=== PATIENT | female | born 1935 | race Asian ===

== ENCOUNTER → 2018-01-26 | Outpatient (CLI) | payer MEDICARE, OTHER ==
[~2018-01-26] MED LIST: ASPI-891 PO; CALC1TAB15 PO; CLOP75 PO; DSS100 PO; HYDR-4061 PO; LETR2.5 PO; METO100T14 PO; NITR0.4T50 SL; REGADENOSON 0.4 MG/5 ML PF SYRINGE IVP ONE; SESTAMIBI TC99M/UD ISOTOPE 1 EA INJ INJ ONE; VALS160T2 PO
[2018-01-26 08:05] VITALS: BP 177/89
[2018-01-26 09:40] VITALS: BP 133/67
== END | disposition home or self-care (01) ==
LOC: CARDMN 08:44
PROVIDERS: ATTEND Internal Medicine Cardiovascular Disease
DX: I25.9 Chronic ischemic heart disease, unspecified (principal); I25.10 Atherosclerotic heart disease of native coronary artery without angina pectoris
CPT/HCPCS: 78452; 93017; A9500

== ENCOUNTER 2019-05-11 00:38 | Emergency (ER) | payer MEDICARE, OTHER ==
[~2019-05-11] VITALS: Ht 149.9 cm; Wt 63.6 kg
[~2019-05-11 00:38] MED LIST changes: +AMLO10TA7 PO; +APIX2.5T PO; -ASPI-891 PO; +ASPI81 PO; -CLOP75 PO; +CLOP75TA3 PO; +ISOS30TA6 PO; +OMEP20 PO; -REGADENOSON 0.4 MG/5 ML PF SYRINGE IVP ONE; -SESTAMIBI TC99M/UD ISOTOPE 1 EA INJ INJ ONE; -VALS160T2 PO
[2019-05-11] MEDS ORDERED: SODIUM BICARBONATE [ADULT] 8.4% 50 MEQ/50 ML SYRINGE IVP ONE ×3 (00:41→03:30)
[2019-05-11] MEDS ORDERED: EPINEPHrine 1:10,000 [1 MG/10 ML] SYRINGE IVP ONE ×2 (00:41)
[2019-05-11] MEDS ORDERED: ATROPINE SULFATE 0.1 MG/ML 10 ML SYRINGE IVP ONE (00:41)
[2019-05-11] MEDS ORDERED: AMIODARONE HCL 50 MG/ML 3 ML VIAL IV ONE (00:41)
[2019-05-11] MEDS ORDERED: CALCIUM CHLORIDE 100 MG/ML 10 ML SYRINGE IVP ONE ×2 (00:41→03:30)
[2019-05-11] MEDS ORDERED: RAPID SEQUENCE KIT [RSI] 1 EACH KIT ONE (02:30)
[2019-05-11] MEDS ORDERED: SUCCINYLCHOLINE CHLORIDE 20 MG/ML 10 ML VIAL ONE (02:30)
[2019-05-11 02:34] LABS: GLUCOSE,POINT OF CARE 473 MG/DL (70-110)
[2019-05-11] MEDS ORDERED: NOREPINEPHRINE 4 MG/D5%-WATER 250 ML IV ONE (02:43)
[2019-05-11] MEDS ORDERED: MIDAZOLAM HCL 5 MG/ML VIAL ONE ×2 (02:52→06:08)
[2019-05-11] MEDS ORDERED: HEPARIN SODIUM,PORCINE 5,000 UNITS/ML VIAL ONE (02:54)
[2019-05-11] MEDS ORDERED: NOREPINEPHRINE 4 MG/D5%-WATER 250 ML IV PRN (03:00)
[2019-05-11 03:03] LABS: INR 1.6 (0.9-1.1); PROTHROMBIN TIME 16.4 SEC (9.4-11.6)
[2019-05-11 03:16] LABS: ALBUMIN 1.5 g/dL (3.4-5.0); BILIRUBIN,TOTAL 0.9 mg/dL (0.1-1.0); CALCIUM, TOTAL 7.9 mg/dL (8.8-10.5); CREATININE 2.39 mg/dL (0.60-1.30); THYROID STIMULATING HORMONE 0.22 uIU/mL (0.36-3.74); TOTAL PROTEIN, SERUM 4.3 g/dL (6.4-8.2)
[2019-05-11 03:18] LABS: MEAN CORPUSCULAR HEMOGLOBIN 34.1 pg (26.0-34.0); MEAN CORPUSCULAR HGB CONC 30.4 G/dL (31.0-37.0); MEAN CORPUSCULAR VOLUME 112 fL (80-100); PLATELET COUNT (AUTO) 93 K/uL (150-450); RED BLOOD CELL COUNT(AUTO) 1.41 MIL/uL (4.00-5.20); RED CELL DISTRIBUTION WIDTH 19.2 % (11.5-14.5)
[2019-05-11 03:19] LABS: HEMATOCRIT 15.9 % (36-46); HEMOGLOBIN 4.8 g/dL (12.0-16.0)
[2019-05-11 03:25] LABS: POTASSIUM 7.8 mmol/L (3.5-5.1)
[2019-05-11] MEDS ORDERED: PANTOPRAZOLE SODIUM 80 MG in SODIUM CHLORIDE 0.9% 100 ML IV SCH (03:30)
[2019-05-11] MEDS ORDERED: PANTOPRAZOLE SODIUM 40 MG/VIAL IVP ONE (03:30)
[2019-05-11] MEDS ORDERED: CALCIUM GLUCONATE 100 MG/ML 10 ML IVP ONE ×3 (03:30→06:00)
[2019-05-11] MEDS ORDERED: INSULIN REGULAR, HUMAN 100 UNITS/ML IVP ONE (03:30)
[2019-05-11] MEDS ORDERED: DEXTROSE 50%-WATER 25 GM/50 ML SYRINGE IVP ONE ×2 (03:30)
[2019-05-11 03:31] LABS: MEAN CORPUSCULAR HEMOGLOBIN 34.4 pg (26.0-34.0); MEAN CORPUSCULAR HGB CONC 29.9 G/dL (31.0-37.0); MEAN CORPUSCULAR VOLUME 115 fL (80-100); RED BLOOD CELL COUNT(AUTO) 0.96 MIL/uL (4.00-5.20); RED CELL DISTRIBUTION WIDTH 18.8 % (11.5-14.5)
[2019-05-11 03:34] LABS: APPEARANCE,URINE CLOUDY (CLEAR); BILIRUBIN,URINE NEGATIVE (NEGATIVE); GLUCOSE, URINE (UA) 250 mg/dL (NEGATIVE); KETONES,URINE NEGATIVE (NEGATIVE); LEUKOCYTE ESTERASE ,URINE NEGATIVE (NEGATIVE); NITRATE,URINE NEGATIVE (NEGATIVE); OCCULT BLOOD,URINE NEGATIVE (NEGATIVE); PROTEIN,URINE POS 1+ (NEGATIVE); UROBILINOGEN,URINE 0.2 mg/dL (<=1.0)
[2019-05-11 03:37] LABS: PLATELET MORPHOLOGY COMMENT GIANT PLTS PRESENT
[2019-05-11] MEDS ORDERED: SODIUM BICARBONATE 150 MEQ in DEXTROSE 5%-WATER 1,000 ML IV ONE (04:00)
[2019-05-11] MEDS ORDERED: INSULIN REGULAR, HUMAN 100 UNITS in SODIUM CHLORIDE 0.9% 99 ML IV SCH ×2 (04:00)
[2019-05-11] MEDS ORDERED: SODIUM BICARBONATE 150 MEQ in DEXTROSE 5%-WATER 850 ML IV ONE (04:00)
[2019-05-11 04:10] LABS: ABG CARBOXYHEMOGLOBIN 0.3 % (0.0-1.5); ABG METHEMOGLOBIN 0.4 % (0.0-1.5); ABG OXYGEN SATURATION 98.7 % (95.0-98.0); SOURCE, BLOOD GAS ARTERIAL; TEMPERATURE, FAHRENHEIT, BG 97.6 FAHREN (96.0-98.6)
[2019-05-11 04:13] LABS: ABG PH 6.847 (7.35-7.450)
[2019-05-11 04:14] LABS: ABG TOTAL HEMOGLOBIN 2.5 G/dL (12.0-18.0); SITE, BLOOD GAS RT RADIAL
[2019-05-11 04:15] LABS: O2 DEVICE,BLOOD GAS VENTILATOR (ROOM AIR); PEEP,BG 5 cm H2O; VT, ABG 450 ml
[2019-05-11 04:23] LABS: HEMOGLOBIN 3.3 g/dL (12.0-16.0)
[2019-05-11 04:26] LABS: SEGMENTED NEUTROPHILS % 63 % (40-70)
[2019-05-11 04:27] LABS: BAND NEUTROPHILS % (MANUAL) 8 % (0-5); LYMPHOCYTES % (MANUAL) 25 % (22-44); MONOCYTES % (MANUAL) 3 % (2-9); MYELOCYTES % 1 % (0-0)
[2019-05-11] MEDS ORDERED: EPINEPHrine 2 MG, CALCIUM CHLORIDE 1,000 MG in DEXTROSE 5%-WATER 238 ML IV PRN (04:30)
[2019-05-11 04:34] LABS: CORRECTED WHITE BLOOD COUNT 1.7 K/uL (4.5-11.0)
[2019-05-11 04:45] LABS: BACTERIA,URINE Many /HPF (None Seen); RBC,URINE None Seen /HPF (0-2); SQUAMOUS EPITHELIAL CELL,UR Rare /LPF (None Seen)
[2019-05-11 04:58] LABS: PLATELET COUNT (AUTO) 39 K/uL (150-450)
[2019-05-11 05:39] LABS: GLUCOSE,POINT OF CARE 498 MG/DL (70-110)
[2019-05-11 05:39] LABS: GLUCOSE,POINT OF CARE 571 MG/DL (70-110)
[2019-05-11] MEDS ORDERED: CALCIUM GLUCONATE 1,000 MG in DEXTROSE 5%-WATER 50 ML IV ONE (05:45)
[2019-05-11] MEDS ORDERED: MIDAZOLAM HCL 5 MG/ML VIAL IVP ONE (06:15)
[2019-05-11 06:45] VITALS: BP 119/66
[2019-05-11 06:54] LABS: GLUCOSE,POINT OF CARE 558 MG/DL (70-110)
[2019-05-11 07:04] LABS: GLUCOSE,POINT OF CARE 534 MG/DL (70-110)
== END 2019-05-11 08:50 | disposition expired ==
LOC: EMS 00:40 → ICU 05:40 → UNDOADMIN 05:40 → EMS 08:37
DX: I21.4 Non-ST elevation (NSTEMI) myocardial infarction (principal); K92.2 Gastrointestinal hemorrhage, unspecified; E87.5 Hyperkalemia; J96.01 Acute respiratory failure with hypoxia; E87.2 Acidosis; N17.9 Acute kidney failure, unspecified; I11.9 Hypertensive heart disease without heart failure; I25.10 Atherosclerotic heart disease of native coronary artery without angina pectoris; Z79.82 Long term (current) use of aspirin; Z88.8 Allergy status to other drugs, medicaments and biological substances; Z91.018 Allergy to other foods
CPT/HCPCS: 31500; 36415; 36430; 36556; 36600; 71045; 80053; 81001; 82805; 82962; 83690; 84443; 84484; 85025; 85610; 86850; 86900; 86901; 86920; 87077; 87086; 87186; 92950; 93005; 96365; 96366; 96368; 96375; 96376; 99291; 99292; C9113; J0171; J0282; J0461; J0610; J1644; J1815; J2250; J3490 ×4; J7050; J7060 ×2; P9016; 94002; J0330